=== PATIENT | male | born 1990 | race African-American/Black ===

== ENCOUNTER 2024-09-10 03:49 | Emergency (ER) | payer MEDICAID ==
[~2024-09-10] VITALS: Ht 170.2 cm; Wt 51.1 kg
[2024-09-10 03:58] VITALS: BP 148/85; PULSE 73; RESP 16; TEMP 96.5; O2SAT 98
== END 2024-09-10 04:13 | disposition left against medical advice (07) ==
LOC: ER 03:50
DX: J11.1 Influenza due to unidentified influenza virus with other respiratory manifestations (principal); Z53.21 Procedure and treatment not carried out due to patient leaving prior to being seen by health care provider; Z88.8 Allergy status to other drugs, medicaments and biological substances; Z20.822 Contact with and (suspected) exposure to COVID-19
CPT/HCPCS: 36415; 87502; 87503; 87811

== ENCOUNTER 2024-09-10 20:27 | Emergency (ER) | payer MEDICAID ==
[~2024-09-10] VITALS: Ht 170.2 cm; Wt 59.0 kg
[2024-09-10 22:47] VITALS: BP 138/74; PULSE 89; RESP 16; TEMP 98.6; O2SAT 99
== END 2024-09-10 22:49 | disposition left against medical advice (07) ==
LOC: ER 20:28
DX: Z76.5 Malingerer [conscious simulation] (principal); F41.9 Anxiety disorder, unspecified
CPT/HCPCS: 99281

== ENCOUNTER 2024-09-11 14:09 | Emergency (ER) | payer MEDICAID ==
[~2024-09-11] VITALS: Ht 170.2 cm; Wt 58.8 kg
[2024-09-11 14:12] VITALS: BP 124/79; PULSE 84; RESP 18; TEMP 97.8; O2SAT 98
[2024-09-12] MEDS ORDERED: HALO5TAB PO (01:41)
== END 2024-09-11 16:11 | disposition home or self-care (01) ==
LOC: ER 14:10
DX: F20.9 Schizophrenia, unspecified (principal); F41.9 Anxiety disorder, unspecified; Z59.00 Homelessness unspecified
CPT/HCPCS: 99281

== ENCOUNTER 2024-09-11 21:09 | Emergency (ER) | payer MEDICAID ==
[~2024-09-11] VITALS: Ht 170.2 cm; Wt 63.6 kg
[2024-09-11 21:17] VITALS: BP 112/79; PULSE 64; RESP 16; TEMP 98; O2SAT 98
[2024-09-12] MEDS ORDERED: HALO5TAB PO (01:41)
== END 2024-09-11 23:39 | disposition left against medical advice (07) ==
LOC: ER 21:09
DX: F41.9 Anxiety disorder, unspecified (principal); Z88.8 Allergy status to other drugs, medicaments and biological substances; Z59.00 Homelessness unspecified
CPT/HCPCS: 99281

== ENCOUNTER 2024-09-12 01:00 | Emergency (ER) | payer MEDICAID ==
[~2024-09-12] VITALS: Ht 170.2 cm; Wt 59.1 kg
[2024-09-12 01:11] VITALS: BP 120/70; PULSE 81; RESP 12; TEMP 98; O2SAT 97
[2024-09-12] MEDS ORDERED: HALO5TAB PO (01:41)
[2024-09-12] MEDS: haloperidol 5mg tablet PO ONE (01:42)
== END 2024-09-12 01:44 | disposition home or self-care (01) ==
LOC: ER 01:00
DX: R00.2 Palpitations (principal); F20.9 Schizophrenia, unspecified; Z88.8 Allergy status to other drugs, medicaments and biological substances; Z79.899 Other long term (current) drug therapy
CPT/HCPCS: 93005; 99283

== ENCOUNTER 2024-09-12 21:36 | Emergency (ER) | payer MEDICAID ==
[~2024-09-12] VITALS: Ht 170.2 cm; Wt 59.1 kg
[~2024-09-12 21:36] MED LIST: HALO5TAB PO
[2024-09-13 04:17] VITALS: TEMP 98.3
[2024-09-13 06:32] LABS: URINE AMPHETAMINE SCREEN NEGATIVE (Neg); URINE BARBITUATE SCREEN NEGATIVE (Neg); URINE BENZODIAZEPINES SCREEN NEGATIVE (Neg); URINE CANNABINOID SCREEN POSITIVE (Neg); URINE COCAINE SCREEN NEGATIVE (Neg); URINE METHADONE SCREEN NEGATIVE (Neg); URINE OPIATE SCREEN NEGATIVE (Neg); URINE PHENCYCLIDINE SCREEN NEGATIVE (Neg)
[2024-09-13 07:29] LABS: BASOPHILS % (AUTO) 0.5 % (0-1); EOSINOPHILS # (AUTO) 0.3 X10'3 (0-0.9); EOSINOPHILS % (AUTO) 4.8 % (0-6); HEMATOCRIT 43.5 % (42.0-52.0); HEMOGLOBIN 14.1 g/dl (14.0-17.9); LYMPHOCYTES % (AUTO) 33.3 % (21-51); MEAN CORPUSCULAR HGB CONC 32.4 g/dL (33.0-36.5); MEAN CORPUSCULAR VOLUME 89.6 FL (78-98); MEAN PLATELET VOLUME 8.9 FL (7.4-10.4); MONOCYTES # (AUTO) 0.8 X10'3 (0-0.9); MONOCYTES % (AUTO) 13.2 % (2-12); NEUTROPHILS # (AUTO) 2.8 X10'3 (1.8-7.7); NEUTROPHILS % (AUTO) 48.2 % (42-75); PLATELET COUNT 219 X10'3 (140-440); RED BLOOD COUNT 4.86 X10'6 (4.70-6.10); RED CELL DISTRIBUTION WIDTH 13.9 % (11.5-14.5); WHITE BLOOD COUNT 5.9 X10'3 (4.5-11.0)
[2024-09-13 07:41] LABS: ALBUMIN 3.4 G/DL (3.4-5.0); ANION GAP 6 (8-16); BLOOD UREA NITROGEN 18 MG/DL (7-18); BUN/CREATININE RATIO 25.7 (10.0-20.0); CALCIUM 8.7 MG/DL (8.5-10.1); CHLORIDE 105 MMOL/L (99-107); ETHANOL < 10 MG/DL (<10); GLUCOSE 81 MG/DL (70-104); MAGNESIUM 2.1 MG/DL (1.5-2.4); SALICYLATE 2.5 MG/DL (4.0-20.0); SODIUM 140 MMOL/L (135-145); TOTAL CARBON DIOXIDE 29.5 MMOL/L (24-32); eCRCL 123 ML/MIN; eGFR > 90 ML/MIN
[2024-09-13 07:44] LABS: POTASSIUM 4.2 MMOL/L (3.5-5.1)
[2024-09-13 07:48] LABS: ACETAMINOPHEN < 2.0 UG/ML (10-30)
[2024-09-13 09:00] VITALS: BP 126/70; PULSE 94; RESP 15; O2SAT 98
== END 2024-09-13 09:54 | disposition home or self-care (01) ==
LOC: ER 21:37
DX: F20.9 Schizophrenia, unspecified (principal); Z20.822 Contact with and (suspected) exposure to COVID-19; F41.9 Anxiety disorder, unspecified; Z88.8 Allergy status to other drugs, medicaments and biological substances; Z79.899 Other long term (current) drug therapy
CPT/HCPCS: 36415; 80048; 80305; 80320; 80329; 82140; 83735; 85025; 87811; 99283

== ENCOUNTER 2024-09-13 20:03 | Emergency (ER) | payer MEDICAID ==
[~2024-09-13] VITALS: Ht 170.2 cm; Wt 59.0 kg
[2024-09-13 20:30] VITALS: BP 124/67; PULSE 78; RESP 16; O2SAT 98
[2024-09-13 21:17] VITALS: TEMP 98.1
== END 2024-09-13 21:20 | disposition home or self-care (01) ==
LOC: ER 20:03
DX: M79.672 Pain in left foot (principal); M79.671 Pain in right foot; Z59.00 Homelessness unspecified; Z88.8 Allergy status to other drugs, medicaments and biological substances; Z79.899 Other long term (current) drug therapy
CPT/HCPCS: 99281

== ENCOUNTER 2024-09-14 03:34 | Emergency (ER) | payer MEDICAID ==
[~2024-09-14] VITALS: Ht 170.2 cm; Wt 46.8 kg
[2024-09-14 07:04] VITALS: BP 131/83; PULSE 78; RESP 16; TEMP 97.7; O2SAT 99
== END 2024-09-14 09:43 | disposition left against medical advice (07) ==
LOC: ER 03:34
DX: R44.3 Hallucinations, unspecified (principal); Z53.21 Procedure and treatment not carried out due to patient leaving prior to being seen by health care provider; Z88.8 Allergy status to other drugs, medicaments and biological substances

== ENCOUNTER 2024-09-14 18:13 | Emergency (ER) | payer MEDICAID | END 2024-09-14 19:21 | disposition left against medical advice (07) | LOC: ER 18:14 | DX: Z00.8 Encounter for other general examination (principal); Z88.8 Allergy status to other drugs, medicaments and biological substances; Z53.21 Procedure and treatment not carried out due to patient leaving prior to being seen by health care provider ==

== ENCOUNTER 2025-04-06 20:53 | Emergency (ER) | payer MEDICAID, OTHER | END 2025-04-06 21:33 | disposition left against medical advice (07) | LOC: ER 20:54 | DX: J00 Acute nasopharyngitis [common cold] (principal); Z53.21 Procedure and treatment not carried out due to patient leaving prior to being seen by health care provider; Z88.8 Allergy status to other drugs, medicaments and biological substances ==

== ENCOUNTER 2025-04-06 21:58 | Emergency (ER) | payer MEDICAID, OTHER | END 2025-04-06 22:44 | disposition left against medical advice (07) | LOC: ER 21:59 | DX: J00 Acute nasopharyngitis [common cold] (principal); Z88.8 Allergy status to other drugs, medicaments and biological substances; Z53.21 Procedure and treatment not carried out due to patient leaving prior to being seen by health care provider ==

== ENCOUNTER 2025-04-07 01:32 | Emergency (ER) | payer SELFPAY ==
[2025-04-08] MEDS ORDERED: BENZ-38 PO (03:54)
[2025-04-08] MEDS ORDERED: ACET-2615 PO (22:21)
== END 2025-04-07 02:04 | disposition left against medical advice (07) ==
LOC: ER 01:33
DX: J00 Acute nasopharyngitis [common cold] (principal); Z88.8 Allergy status to other drugs, medicaments and biological substances; Z53.21 Procedure and treatment not carried out due to patient leaving prior to being seen by health care provider

== ENCOUNTER 2025-04-07 04:50 | Emergency (ER) | payer SELFPAY ==
[2025-04-08] MEDS ORDERED: BENZ-38 PO (03:54)
[2025-04-08] MEDS ORDERED: ACET-2615 PO (22:21)
== END 2025-04-07 05:56 | disposition left against medical advice (07) ==
LOC: ER 04:51
DX: R68.89 Other general symptoms and signs (principal); Z53.21 Procedure and treatment not carried out due to patient leaving prior to being seen by health care provider; Z88.8 Allergy status to other drugs, medicaments and biological substances

== ENCOUNTER 2025-04-07 13:03 | Emergency (ER) | payer SELFPAY ==
[~2025-04-07] VITALS: Ht 172.7 cm; Wt 60.5 kg
[2025-04-07 13:22] VITALS: BP 126/65; PULSE 87; RESP 18; TEMP 97.6; O2SAT 99
[2025-04-08] MEDS ORDERED: BENZ-38 PO (03:54)
[2025-04-08] MEDS ORDERED: ACET-2615 PO (22:21)
== END 2025-04-07 14:42 | disposition left against medical advice (07) ==
LOC: ER 13:03
DX: R05.9 Cough, unspecified (principal); Z88.8 Allergy status to other drugs, medicaments and biological substances; Z53.21 Procedure and treatment not carried out due to patient leaving prior to being seen by health care provider

== ENCOUNTER 2025-04-08 03:25 | Emergency (ER) | payer MEDICARE ==
[~2025-04-08] VITALS: Ht 172.7 cm; Wt 63.6 kg
[~2025-04-08 03:25] MED LIST changes: -ACET-2615 PO; -BENZ-38 PO
[2025-04-08 03:38] VITALS: TEMP 98
--- NOTE | 2025-04-08 03:51 | Physician Documentation ---
History of Present Illness ~ Chief Complaint: Cold, cough & congestion Stated Complaint: COUGH,CONGESTION Time Seen by MD: 03:36 HPI Patient presents to the emergency room for evaluation of cough cold congestion x2 weeks. He has no medicine for this. No fevers. Also asking for something to eat Medication Reconciliation Allergies: Coded Allergies: clozapine (Unverified Allergy, Mild, 04/07/25) Stiff muscles Scheduled Haloperidol (Haloperidol), 1 TAB PO Q12H Review of Systems ROS All review of systems negative except as per HPI Physical Exam Vital Signs: Temperature: 98.0, Source: Temporal, Heart Rate: 93, Respiratory Rate: 16, BP: 148/82, Pulse Oximetry: 98, Weight: 63.640 Oxygen Flow Rate: 0 Physical Exam General: Patient is awake, alert, oriented x4 in no acute distress, playing on his phone Head: Normocephalic and atraumatic. Eyes: Conjunctival normal. EOMI. PERRL. ENT: Mucous membranes moist. Neck: Supple, trachea is midline. Chest: Clear to auscultation bilaterally without rales, rhonchi, or wheezes. There is no accessory muscle use or retractions. Cardiac: RRR without murmurs, gallops, or rubs. Abd: Soft, nondistended, nontender, with normoactive bowel sounds. No guarding, rebound, or rigidity. Progress Results/Orders Results/Orders Vital Signs 04/08/25 03:38 Temp 98.0 Pulse 93 Resp 16 B/P (MAP) 148/82 Pulse Ox 98 O2 Flow Rate 0 Medical Decision Making Findings Patient presents to the emergency room with cough cold congestion symptoms. Vital signs are stable and he is nontoxic appearing with reassuring vitals. He had not feel he requires emergent labs or imaging Departure Disposition: HOME / SELF CARE / HOMELESS Impression: Primary Impression: Acute respiratory infection Condition: Stable Discharge Instructions: Upper Respiratory Infection, Adult Referrals: NO PRIMARY CARE PROVIDER (PCP) Prescriptions Benzonatate* (Benzonatate*) 100 Mg Capsule 1 CAP PO Q6H PRN for cough, #30 CAP Prov: ELROY COFFEY MD 04/08/25 Signature Scribe Signature: No scribe Attestation: The note accurately reflects work and decisions made by me.Elroy Coffey MD 04/08/25 03:54 ELROY COFFEY MD Apr 08, 2025 03:51
[2025-04-08] MEDS ORDERED: BENZ-38 PO (03:54)
[2025-04-08 04:09] VITALS: BP 132/66; PULSE 78; RESP 16; O2SAT 98
[2025-04-08] MEDS ORDERED: ACET-2615 PO (22:21)
== END 2025-04-08 04:23 | disposition home or self-care (01) ==
LOC: ER 03:26
DX: J22 Unspecified acute lower respiratory infection (principal)
CPT/HCPCS: 99283

== ENCOUNTER → 2025-04-08 | Emergency (ER) | payer MEDICARE ==
[~2025-04-08] VITALS: Ht 172.7 cm; Wt 63.6 kg
[~2025-04-08] MED LIST changes: +ACET-2615 PO; +BENZ-38 PO
--- NOTE | 2025-04-08 22:15 | Physician Documentation ---
History of Present Illness ~ Chief Complaint: Foot pain Stated Complaint: FOOT PAIN Time Seen by MD: 22:14 HPI Patient presents to the emergency room with bilateral foot pain from walking too much. He has denies any fractures etc.. No traumas Tetanus witin 5 years: Yes Medication Reconciliation Allergies: Coded Allergies: clozapine (Unverified Allergy, Mild, 04/07/25) Stiff muscles Scheduled Haloperidol (Haloperidol), 1 TAB PO Q12H Scheduled PRN Benzonatate* (Benzonatate*), 1 CAP PO Q6H PRN for cough Review of Systems ROS All review of systems negative except as per HPI Physical Exam Vital Signs: Temperature: 97.8, Heart Rate: 85, Respiratory Rate: 16, BP: 126/69, Pulse Oximetry: 98, Weight: 63.600 Oxygen Flow Rate: 0 Physical Exam General: Patient is awake, alert, oriented x4 in no acute distress Head: Normocephalic and atraumatic. Eyes: Conjunctival normal. EOMI. PERRL. ENT: Mucous membranes moist. Neck: Supple, trachea is midline. Chest: Clear to auscultation bilaterally without rales, rhonchi, or wheezes. There is no accessory muscle use or retractions. Cardiac: RRR without murmurs, gallops, or rubs. Abd: Soft, nondistended, nontender, with normoactive bowel sounds. No guarding, rebound, or rigidity. Extremities: Normal-appearing feet without swelling Progress Results/Orders Results/Orders Vital Signs 04/08/25 22:02 Temp 97.8 Pulse 85 Resp 16 B/P (MAP) 126/69 Pulse Ox 98 O2 Flow Rate 0 Medical Decision Making Findings Patient presents to the emergency room with bilateral feet. I do not suspect bilateral pathologies. I do not feel he requires labs or imaging. Departure Disposition: HOME / SELF CARE / HOMELESS Impression: Primary Impression: Foot pain Condition: Stable Discharge Instructions: Foot Pain Prescriptions Acetaminophen (Tylenol Extra Strength) 500 Mg Tablet 2 TAB PO Q6H PRN PRN for pain or fever for 7 Days, #56 TAB Prov: ELROY COFFEY MD 04/08/25 Signature Scribe Signature: No scribe Attestation: The note accurately reflects work and decisions made by me.Elroy Coffey MD 04/08/25 22:20 ELROY COFFEY MD Apr 08, 2025 22:15
[2025-04-08 22:34] VITALS: BP 124/65; PULSE 80; RESP 18; TEMP 98.6; O2SAT 99
== END | disposition home or self-care (01) ==
LOC: ER 21:48
DX: M79.671 Pain in right foot (principal); M79.672 Pain in left foot
CPT/HCPCS: 99283